=== PATIENT | male | born 1975 | race Caucasian/White ===

== ENCOUNTER 2018-04-30 19:12 | Emergency (ER) | payer SELFPAY ==
[2018-04-30 19:24] VITALS: BP 136/78; PULSE 87; TEMP 99.2; BMI 31.6
--- NOTE | 2018-04-30 19:24 | PDOC ---
Rapid Medical Evaluation Chief Complaint: Chest Pain Time Seen by Provider: 04/30/18 19:17 Medical Evaluation: Allergies Allergy/AdvReac Type Severity Reaction Status Date / Time No Known Allergies Allergy Verified 10/16/15 23:40 04/30/18 19:18 Pt. reports pleuritic chest pain for one week. States that he thinks it was initially from the coughing, but today he states that the pain feel like a pinching pain. Also reports shortness of breath, difficulty breathing, non- productive cough and fevers for the last two days. Pain is worse when he takes a deep breath or coughs. Has taken no medication for his pain Exam: AAOx3, breathing easily Orders: EKG, CXR Pt. to proceed to the ER for further evaluation
--- NOTE | 2018-04-30 20:00 | PDOC ---
History of Present Illness - General Chief Complaint: Chest Pain Stated Complaint: CHEST PAIN Time Seen by Provider: 04/30/18 19:17 - History of Present Illness Initial Comments: 42-year-old male without any pre-existing comorbidities presents for evaluation of cough and posttussive chest pain times one week. Subjective fever at home. He hasn't taken anything for his cough or his pain. 04/30/18 19:55 Past History - Past Medical History Allergies/Adverse Reactions: Allergies Allergy/AdvReac Type Severity Reaction Status Date / Time No Known Allergies Allergy Verified 10/16/15 23:40 Home Medications: Ambulatory Orders Budesonide [Rhinocort Allergy] 1 spray NS ONCE #1 spray.pump 04/30/18 Cetirizine HCl/Pseudoephedrine [Zyrtec-D Tablet] 1 each PO DAILY #30 tab.er.12h 04/30/18 Guaifenesin [Robitussin] 5 ml PO HS #30 ml 04/30/18 Asthma: Yes COPD: No Other medical history: hepatitis C - Surgical History Appendectomy: Yes - Immunization History Immunization Up to Date: Yes - Suicide/Smoking/Psychosocial Hx Smoking Status: No Smoking History: Never smoked Have you smoked in the past 12 months: No Number of Cigarettes Smoked Daily: 0 Information on smoking cessation initiated: No 'Breaking Loose' booklet given: 05/16/14 Hx Alcohol Use: No Drug/Substance Use Hx: No Substance Use Type: None Hx Substance Use Treatment: No Review of Systems - Review of Systems Constitutional: Yes: See HPI, Fever Respiratory: Yes: Cough, Shortness of Breath, SOB with Exertion. No: SOB at Rest, Productive cough Cardiac (ROS): Yes: Chest Pain All Other Systems: Reviewed and Negative *Physical Exam - Vital Signs Last Vital Signs Temp Pulse Resp BP Pulse Ox 99.2 F 87 18 136/78 100 04/30/18 19:18 04/30/18 19:18 04/30/18 19:18 04/30/18 19:18 04/30/18 19:18 - Physical Exam Comments: GENERAL: The patient is awake, alert, and fully oriented, in no acute distress. HEAD: Normal with no signs of trauma. EYES: Pupils equal, round and reactive to light, extraocular movements intact, sclera anicteric, conjunctiva clear. ENT: Ears normal, nares patent, oropharynx clear without exudates. Moist mucous membranes. NECK: Normal range of motion, supple without lymphadenopathy, JVD, or masses. LUNGS: Breath sounds equal, clear to auscultation bilaterally. No wheezes, and no crackles. HEART: Regular rate and rhythm, normal S1 and S2 without murmur, rub or gallop. he has tenderness about the third fourth and fifth costochondrajunction on the left ABDOMEN: Soft, nontender, normoactive bowel sounds. No guarding, no rebound. No masses. EXTREMITIES: Normal range of motion, no edema. No clubbing or cyanosis. No cords, erythema, or tenderness. NEUROLOGICAL: Cranial nerves II through XII grossly intact. Normal speech, normal gait. PSYCH: Normal mood, normal affect. SKIN: Warm, Dry, normal turgor, no rashes or lesions noted. 04/30/18 19:56 04/30/18 19:58 Medical Decision Making - Medical Decision Making This is a 42-year-old male with a benign exam subjective fever at home posttussive chest pain. He has no cardiac risk factors his chest pain is reproducible with palpation. I believe this may be a viral bronchitis or seasonal ALLERGY I will treat him with Loni and Robitussin as well as a nasal spray and have him follow-up with his primary care physician. 04/30/18 19:56 04/30/18 20:01 Of note his chest x-ray was normal *DC/Admit/Observation/Transfer Diagnosis at time of Disposition: Allergic rhinitis, Cough - Discharge Dispostion Disposition: HOME Condition at time of disposition: Stable Decision to Admit order: No - Referrals Referrals: Sujit Gonzalez [Non Staff, Medical] - - Patient Instructions Printed Discharge Instructions: DI for Chest Pain, Allergic Rhinitis, DI for Allergic Rhinitis Additional Instructions: Return to the emergency room should her symptoms worsen or go unresolved. He should follow-up with your primary care doctor within the next 1-2 days. Your chest x-ray was clear neuro exam was normal except for the reproducible chest pain. This tells me this pain is not cardiac in nature. I believe he had chest pain because you've had a cough for a week I've given you cough syrup an antihistamine for ALLERGIES as well as a nasal spray which will help your congestion. Again return to the emergency room should her symptoms worsen or go unresolved prior to follow-up with her primary care doctor take the medication as prescribed. - Post Discharge Activity
--- NOTE | 2018-05-01 11:53 | EKG ---
Test Reason : Blood Pressure : / mmHG Vent. Rate : 093 BPM Atrial Rate : 093 BPM P-R Int : 178 ms QRS Dur : 102 ms QT Int : 340 ms P-R-T Axes : 035 -30 051 degrees QTc Int : 422 ms NORMAL SINUS RHYTHM LEFT AXIS DEVIATION ABNORMAL ECG WHEN COMPARED WITH ECG OF 12-AUG-2013 09:13, QRS DURATION HAS INCREASED Confirmed by ROSSY ARREGUIN MD ([id number]) on 05/01/2018 11:53:13 AM Referred By: Confirmed By:ROSSY ARREGUIN MD
== END 2018-04-30 20:05 | disposition home or self-care (01) ==
LOC: JERFT 19:12
DX: J30.2 Other seasonal allergic rhinitis (principal)
CPT/HCPCS: 71046-TC-FY; 93005; 93010; 99281-25

== ENCOUNTER 2018-08-02 22:22 | Emergency (ER) | payer SELFPAY ==
[2018-08-02 22:54] VITALS: BP 118/98; PULSE 61; TEMP 98.3; BMI 30.7
[2018-08-02] MEDS ORDERED: KETOROLAC TROMETHAMINE 15 MG/ML VIAL IM ONE (23:14)
--- NOTE | 2018-08-02 23:19 | PDOC ---
History of Present Illness - General Chief Complaint: Pain, Acute Stated Complaint: RT SHOULDER PAIN Time Seen by Provider: 08/02/18 22:50 History Source: Patient Exam Limitations: No Limitations - History of Present Illness Initial Comments: 08/02/18 23:14 Mr. Herron is a 43 yo M with a hx of MA 5 yrs ago presents to the emergency department with right shoulder pain. This has been ongoing for the past two weeks. The pain is reproducible/worsens when he overuses his arm and when it is outstretched backwards. He states the pain is worse at night when he lays on it. Currently it feels like a sharp pain located in the shoulder region and deltoid distribution. He denies an inciting event that occurred 2 weeks ago. Denies the following: exertion chest pain and SOB, fever, chills, nausea, vomiting, SOB at rest, chest pain at rest, abdominal pain, recent visual changes , cyanosis of the arm, loss of sensation and motor function of the right arm, dysuria, hematuria, and diarrhea. PMD: Jamir Thomas Social hx: Denies tobacco, alcohol, and drug use. Meds: None Allergies: NKDA Past History - Past Medical History Allergies/Adverse Reactions: Allergies Allergy/AdvReac Type Severity Reaction Status Date / Time No Known Allergies Allergy Verified 08/02/18 22:53 Home Medications: Ambulatory Orders Budesonide [Rhinocort Allergy] 1 spray NS ONCE #1 spray.pump 04/30/18 Cetirizine HCl/Pseudoephedrine [Zyrtec-D Tablet] 1 each PO DAILY #30 tab.er.12h 04/30/18 Guaifenesin [Robitussin] 5 ml PO HS #30 ml 04/30/18 Asthma: Yes COPD: No - Surgical History Appendectomy: Yes - Immunization History Immunization Up to Date: Yes - Suicide/Smoking/Psychosocial Hx Smoking Status: No Smoking History: Never smoked Have you smoked in the past 12 months: No Number of Cigarettes Smoked Daily: 0 Information on smoking cessation initiated: No 'Breaking Loose' booklet given: 05/16/14 Hx Alcohol Use: No Drug/Substance Use Hx: No Substance Use Type: None Hx Substance Use Treatment: No Review of Systems - Review of Systems Able to Perform ROS?: Yes Is the patient limited Salvadorean proficient: No Constitutional: No: Chills, Diaphoresis, Fever HEENTM: No: Eye Pain, Recent change in vision, Ear Pain, Nose Pain, Throat Pain , Mouth Pain Respiratory: No: Cough, SOB with Exertion, SOB at Rest, Hemoptysis Cardiac (ROS): No: Chest Pain, Irregular Heart Rate, Lightheadedness, Palpitations, Syncope, Chest Tightness ABD/GI: No: Constipated, Diarrhea, Nausea, Rectal Bleeding, Vomiting, Abdominal cramping, Tarry Stools : No: Burning, Dysuria, Flank Pain, Hematuria Musculoskeletal: Yes: Joint Pain (right shoulder). No: Back Pain, Joint Swelling, Muscle Pain, Neck Pain, Joint Stiffness Integumentary: No: Rash Neurological: No: Headache, Numbness, Pre-Existing Deficit, Seizure, Tingling, Weakness, Unsteady Gait, Ataxia, Dizziness Psychiatric: No: Stressors Endocrine: No: Unexplained Weight Loss Hematologic/Lymphatic: No: Anemia *Physical Exam - Vital Signs Last Vital Signs Temp Pulse Resp BP Pulse Ox 98.3 F 61 18 118/98 99 08/02/18 22:53 08/02/18 22:53 08/02/18 22:53 08/02/18 22:53 08/02/18 22:53 - Physical Exam General Appearance: Yes: Nourished, Appropriately Dressed HEENT: positive: EOMI, ALICE, Normal Voice, Symmetrical Neck: positive: Trachea midline. negative: Lymphadenopathy (R), Lymphadenopathy (L) Respiratory/Chest: positive: Lungs Clear, Normal Breath Sounds. negative: Chest Tender, Respiratory Distress, Accessory Muscle Use, Crackles, Rales, Rhonchi, Wheezing, Hyperresonant Cardiovascular: positive: Regular Rhythm, Regular Rate, S1, S2. negative: Murmur Vascular Pulses: Dorsalis-Pedis (R): 3+, Doralis-Pedis (L): 3+ Gastrointestinal/Abdominal: positive: Normal Bowel Sounds. negative: Tender Lymphatic: negative: Adenopathy Musculoskeletal: positive: Normal Inspection. negative: CVA Tenderness Extremity: positive: Normal Capillary Refill, Normal Inspection (eczema throughout the upper extremity), Normal Range of Motion (elicited clicking on the right shoulder with active ROM), Tender (deltoid region right. right shoulder region in the superior/posterior portion. Positive empty can, neers, and giron test), Other (no sublaxation noted on exam of the right shoulder). 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 negative: EOM Palsy, Facial Droop , Numbness, Sensory Deficit, Confused, Disoriented ED Treatment Course - RADIOLOGY Radiology Studies Ordered: Category Date Time Status SHOULDER-RIGHT [RAD] Stat Radiology 08/02/18 23:02 Ordered Medical Decision Making - Medical Decision Making 08/02/18 23:28 Mr. Herron is a 43 yo M with a hx of MA 5 yrs ago presents to the emergency department with right shoulder pain. DDX: anterior/posterior dislocation, humeral head/neck fracture, contusion, labrum tear, rotator cuff tear/impingement, thoracic outlet syndrome Initial vitals: Initial Vital Signs Temp Pulse Resp BP Pulse Ox 98.3 F 61 18 118/98 99 08/02/18 22:53 08/02/18 22:53 08/02/18 22:53 08/02/18 22:53 08/02/18 22:53 Work up: Shoulder xray to rule out fracture and/or dislocation. Shoulder xray did not show evidence of dislocation or fracture. He was given 15 mg of toradol for analgesia. He felt better after this was given and states he is ok to go home. Will have them follow up with orthopedics for eventual MRI to ascertain pathology. Pt was agreeable to this plan and understood it in its entirety. 08/03/18 00:07 *DC/Admit/Observation/Transfer Diagnosis at time of Disposition: Right shoulder pain Qualifiers: Chronicity: unspecified Qualified Code(s): M25.511 - Pain in right shoulder - Discharge Dispostion Disposition: HOME Decision to Admit order: No - Referrals Referrals: Jamir Thomas [Non Staff, Medical] - Kristian Ruiz MD [Staff Physician] - - Patient Instructions Additional Instructions: You have been seen in the emergency department for right shoulder pain. You were examined in the department and received a shoulder xray that showed no fracture or dislocations. You are being referred to your primary medical doctor who you should follow up with in 24-36 hours for continued care and management. In the meanwhile, please keep your shoulder activity to a minimum and use ibuprofen as directed on the label for pain control. In addition, please follow up with the orthopedics physician we referred you to within the next week for further management. Please return to the emergency department if your symptoms worsen or if you have new concerning symptoms such as loss of sensation in your right arm, it becomes pale, cold, or lose the ability to move your arm. Thank you. - Post Discharge Activity
[2018-08-02] MEDS ORDERED: KETOROLAC TROMETHAMINE 15 MG/ML VIAL ONE (23:39)
--- NOTE | 2018-08-03 00:25 | PDOC ---
Attending Attestation - Resident Resident Name: Reji Lozoya - ED Attending Attestation I have performed the following: I have examined & evaluated the patient, The case was reviewed & discussed with the resident, I agree w/resident's findings & plan, Exceptions are as noted - HPI HPI: 08/03/18 00:25 Agree with residents HPI - Physicial Exam PE: 08/03/18 00:25 Agree with residents PE - Medical Decision Making 08/03/18 00:24 Reproducible musculoskeletal right shoulder pain. Worse with extension back and when lifting overhead most likely differential diagnosis includes rotator cuff injury versus labrum injury. Status post Toradol patient feels better x-ray demonstrates no acute fracture dislocation. Pt. will follow up with orthopedics on Saturday. Findings, the need for follow-up and strict return instructions discussed with patient.
== END 2018-08-03 00:35 | disposition home or self-care (01) ==
LOC: JER 22:22
PROC: 3E0233Z Introduction of Anti-inflammatory into Muscle, Percutaneous Approach (ICD-10-PCS; principal; 2018-08-02)
DX: M25.511 Pain in right shoulder (principal); I25.2 Old myocardial infarction; J45.909 Unspecified asthma, uncomplicated
CPT/HCPCS: 73030-TC-RT-FY; 99282-25

== ENCOUNTER 2018-12-09 23:18 | Emergency (ER) | payer SELFPAY ==
[2018-12-09 23:25] VITALS: BMI 30.7
--- NOTE | 2018-12-09 23:38 | PDOC ---
History of Present Illness - General Chief Complaint: Cold Symptoms Stated Complaint: COLD SYMPTOMS Time Seen by Provider: 12/09/18 23:38 History Source: Patient - History of Present Illness Initial Comments: 12/10/18 00:26 43 year old male with cough, nasal congestion and throat pain x 1 day. vomited 1 x today. denies fever/ chills. Past History - Past Medical History Allergies/Adverse Reactions: Allergies Allergy/AdvReac Type Severity Reaction Status Date / Time No Known Allergies Allergy Verified 08/02/18 22:53 Home Medications: Ambulatory Orders Budesonide [Rhinocort Allergy] 1 spray NS ONCE #1 spray.pump 04/30/18 Cetirizine HCl/Pseudoephedrine [Zyrtec-D Tablet] 1 each PO DAILY #30 tab.er.12h 04/30/18 Guaifenesin [Robitussin] 5 ml PO HS #30 ml 04/30/18 Albuterol Sulfate Inhaler - [Ventolin HFA Inhaler -] 1 - 2 inh PO Q4H PRN #1 inhaler 12/10/18 Fluticasone Prop 0.05% Nasal [Flonase -] 1 - 2 spray NS BID #1 spray.pump Asthma: Yes COPD: No - Surgical History Appendectomy: Yes - Immunization History Immunization Up to Date: Yes - Suicide/Smoking/Psychosocial Hx Smoking Status: No Smoking History: Never smoked Have you smoked in the past 12 months: No Number of Cigarettes Smoked Daily: 0 Information on smoking cessation initiated: No 'Breaking Loose' booklet given: 05/16/14 Hx Alcohol Use: No Drug/Substance Use Hx: No Substance Use Type: None Hx Substance Use Treatment: No Review of Systems - Review of Systems Able to Perform ROS?: No Is the patient limited Italian proficient: No Constitutional: No: Symptoms Reported, See HPI, Chills, Diaphoresis, Fever, Loss of Appetite, Malaise, Night Sweats, Weakness, Weight Stable, Unintentional Wgt. Loss, Unexplained wgt Loss, Other HEENTM: Yes: Nose Congestion, Throat Pain Respiratory: Yes: Cough, Shortness of Breath *Physical Exam - Vital Signs Last Vital Signs Temp Pulse Resp BP Pulse Ox 97.7 F 68 18 133/71 97 12/09/18 23:22 12/09/18 23:22 12/09/18 23:22 12/09/18 23:22 12/09/18 23:22 - Physical Exam General Appearance: Yes: Appropriately Dressed HEENT: positive: Tonsillar Erythema, Nasal Congestion Neck: negative: Lymphadenopathy (R), Lymphadenopathy (L) Respiratory/Chest: positive: Lungs Clear, Normal Breath Sounds. negative: Chest Tender Cardiovascular: positive: Regular Rhythm, Regular Rate Gastrointestinal/Abdominal: positive: Normal Bowel Sounds, Soft. negative: Tender Extremity: positive: Normal Capillary Refill, Normal Inspection, Normal Range of Motion Integumentary: positive: Normal Color, Dry, Warm Neurologic: positive: Fully Oriented, Alert, Normal Mood/Affect Moderate Sedation - Procedure Monitoring Vital Signs: Procedure Monitoring Vital Signs Temperature 97.7 F 12/09/18 23:22 Pulse Rate 68 12/09/18 23:22 Respiratory Rate 18 12/09/18 23:22 Blood Pressure 133/71 12/09/18 23:22 O2 Sat by Pulse Oximetry (%) 97 12/09/18 23:22 ED Treatment Course - RADIOLOGY Chest X-Ray Result: No Infiltrates *DC/Admit/Observation/Transfer Diagnosis at time of Disposition: URI (upper respiratory infection) Qualifiers: URI type: unspecified URI Qualified Code(s): J06.9 - Acute upper respiratory infection, unspecified - Discharge Dispostion Disposition: HOME - Prescriptions Prescriptions: Albuterol Sulfate Inhaler - [Ventolin HFA Inhaler -] 1 - 2 inh PO Q4H PRN #1 inhaler PRN Reason: Cough Fluticasone Prop 0.05% Nasal [Flonase -] 1 - 2 spray NS BID #1 spray.pump - Referrals Referrals: Jamir Thomas [Primary Care Provider] - - Patient Instructions Printed Discharge Instructions: DI for Common Cold Additional Instructions: drink plenty of fluids use flonase as prescribed take ibuprofen every 6 hours as needed for pain take tylenol every 4-6 hours as needed for pain Additional Instructions: * Please call your personal physician to report your Emergency Department visit and to report your progress, if any. * If there is no improvement in symptoms in 2 days call your physician. * Return to the Emergency Department for any worsening symptoms. - Post Discharge Activity Forms/Work/School Notes: Back to Work
--- NOTE | 2018-12-09 23:56 | PDOC ---
*Physical Exam - Vital Signs Last Vital Signs Temp Pulse Resp BP Pulse Ox 97.7 F 68 18 133/71 97 12/09/18 23:22 12/09/18 23:22 12/09/18 23:22 12/09/18 23:22 12/09/18 23:22 Medical Decision Making - Medical Decision Making 12/09/18 23:56 Patient seen by the advanced practice provider under my direct supervision. Ancillary testing reviewed as necessary. I agree with plan as outlined by the advanced practice provider. *DC/Admit/Observation/Transfer Diagnosis at time of Disposition: URI (upper respiratory infection) Qualifiers: URI type: unspecified URI Qualified Code(s): J06.9 - Acute upper respiratory infection, unspecified - Referrals Referrals: Jamir Thomas [Primary Care Provider] - - Patient Instructions - Post Discharge Activity
[2018-12-10] MEDS ORDERED: IBUPROFEN 600 MG TABLET (FP) PO ONE ×2 (00:27→00:39)
[2018-12-10] MEDS ORDERED: ALBUTEROL SO4 2.5/IPRATROPIUM 0.5 INH SOL 3 ML VIAL.NEB. NEB ONE ×2 (01:40→01:43)
[2018-12-10 02:44] VITALS: BP 141/68; PULSE 88; TEMP 98.5
== END 2018-12-10 02:44 | disposition home or self-care (01) ==
LOC: JER 23:18
PROC: 3E0F7GC Introduction of Other Therapeutic Substance into Respiratory Tract, Via Natural or Artificial Opening (ICD-10-PCS; principal; 2018-12-09)
DX: J06.9 Acute upper respiratory infection, unspecified (principal)
CPT/HCPCS: 71046-TC-FY; 87070; 87804; 87880; 99281-25

== ENCOUNTER 2019-10-06 21:53 | Emergency (ER) | payer SELFPAY ==
[2019-10-06 22:01] VITALS: BP 144/80; PULSE 78; TEMP 98; BMI 31.6
[2019-10-06] MEDS ORDERED: predniSONE 20 MG TABLET (UD) PO ONE (22:40)
--- NOTE | 2019-10-06 22:40 | PDOC ---
History of Present Illness - General Chief Complaint: Cold Symptoms Stated Complaint: SOB/CHEST PAIN Time Seen by Provider: 10/06/19 22:27 History Source: Patient - History of Present Illness Initial Comments: 44-year-old male complaining of chest congestion cough, nasal congestion for the last 2 weeks. Reports cough is worse at night and when outside in the cold. Denies fever/chills denies shortness of breath., Chest pain. Patient Patient reports that he has a past medical history of asthma as an infant/ child. No recent reactive airway. Past History - Past Medical History Allergies/Adverse Reactions: Allergies Allergy/AdvReac Type Severity Reaction Status Date / Time No Known Allergies Allergy Verified 08/02/18 22:53 Home Medications: Ambulatory Orders Budesonide [Rhinocort Allergy] 1 spray NS ONCE #1 spray.pump 04/30/18 Cetirizine HCl/Pseudoephedrine [Zyrtec-D Tablet] 1 each PO DAILY #30 tab.er.12h 04/30/18 Guaifenesin [Robitussin] 5 ml PO HS #30 ml 04/30/18 Albuterol Sulfate Inhaler - [Ventolin HFA Inhaler -] 1 - 2 inh PO Q4H PRN #1 inhaler 12/10/18 Fluticasone Prop 0.05% Nasal [Flonase -] 1 - 2 spray NS BID #1 spray.pump Albuterol Sulfate Inhaler - [Ventolin HFA Inhaler -] 1 - 2 inh PO Q4H PRN #1 inhaler 10/06/19 Benzonatate [Tessalon Pearls -] 100 mg PO TID PRN #14 capsule 10/06/19 predniSONE [Deltasone -] 40 mg PO DAILY #8 tablet 10/06/19 Asthma: Yes COPD: No - Surgical History Appendectomy: Yes - Immunization History Immunization Up to Date: Yes - Psycho Social/Smoking Cessation Hx Smoking Status: No Smoking History: Never smoked Have you smoked in the past 12 months: No Number of Cigarettes Smoked Daily: 0 'Breaking Loose' booklet given: 05/16/14 Hx Alcohol Use: No Drug/Substance Use Hx: No Substance Use Type: None Hx Substance Use Treatment: No Review of Systems - Review of Systems Able to Perform ROS?: Yes Is the patient limited Angolan proficient: No Constitutional: No: Symptoms Reported, See HPI, Chills, Diaphoresis, Fever, Loss of Appetite, Malaise, Night Sweats, Weakness, Weight Stable, Unintentional Wgt. Loss, Unexplained wgt Loss, Other Respiratory: Yes: Cough Cardiac (ROS): Yes: Chest Tightness. No: Symptoms Reported, See HPI, Chest Pain , Edema, Irregular Heart Rate, Lightheadedness, Palpitations, Syncope, Other ABD/GI: No: Symptoms Reported, See HPI, Abdominal Distended, Abd. Pain w/ defecation, Blood Streaked Bowels, Constipated, Diarrhea, Difficulty Swallowing , Nausea, Poor Appetite, Poor Fluid Intake, Rectal Bleeding, Vomiting, Indigestion, Abdominal cramping, Tarry Stools, Other *Physical Exam - Vital Signs Last Vital Signs Temp Pulse Resp BP Pulse Ox 98 F 78 20 144/80 98 10/06/19 21:55 10/06/19 21:55 10/06/19 21:55 10/06/19 21:55 10/06/19 21:55 - Physical Exam General Appearance: Yes: Appropriately Dressed Respiratory/Chest: positive: Lungs Clear, Normal Breath Sounds. negative: Chest Tender Cardiovascular: positive: Regular Rhythm, Regular Rate Gastrointestinal/Abdominal: positive: Normal Bowel Sounds, Soft. negative: Tender Musculoskeletal: positive: Normal Inspection Integumentary: positive: Normal Color, Dry, Warm Neurologic: positive: Fully Oriented, Alert, Normal Mood/Affect ED Progress Note - Progress Note Progress Note: A: bronchitis P: duo neb xray prednisone Discharge - Discharge Information Problems reviewed: Yes Clinical Impression/Diagnosis: Bronchitis Disposition: HOME - Additional Discharge Information Prescriptions: Albuterol Sulfate Inhaler - [Ventolin HFA Inhaler -] 1 - 2 inh PO Q4H PRN #1 inhaler PRN Reason: Cough Benzonatate [Tessalon Pearls -] 100 mg PO TID PRN #14 capsule PRN Reason: Cough predniSONE [Deltasone -] 40 mg PO DAILY #8 tablet - Follow up/Referral Referrals: Jamir Thomas [Primary Care Provider] - 24 hours - Patient Discharge Instructions Patient Printed Discharge Instructions: DI for Acute Bronchitis - Post Discharge Activity Work/Back to School Note: Back to Work
[2019-10-06] MEDS: ALBUTEROL SO4 2.5/IPRATROPIUM 0.5 INH SOL 3 ML VIAL.NEB. NEB SCH ×2 (23:20→23:29)
[2019-10-06] MEDS ORDERED: ALBUTEROL SO4 2.5/IPRATROPIUM 0.5 INH SOL 3 ML VIAL.NEB. NEB ONE (23:23)
[2019-10-06] MEDS ORDERED: predniSONE 20 MG TABLET (UD) ONE (23:23)
--- NOTE | 2019-10-06 23:42 | PDOC ---
*Physical Exam - Vital Signs Last Vital Signs Temp Pulse Resp BP Pulse Ox 98 F 78 20 144/80 98 10/06/19 21:55 10/06/19 21:55 10/06/19 21:55 10/06/19 21:55 10/06/19 21:55 ED Treatment Course - Medications Given in the ED: ED Medications Discontinued Medications Generic Name Dose Route Start Last Admin Trade Name Freq PRN Reason Stop Dose Admin Albuterol/Ipratropium 1 amp 10/06/19 22:45 10/06/19 23:29 Duoneb - NEB 10/06/19 23:01 1 amp Q15M LUCIAN Administration Prednisone 40 mg 10/06/19 22:40 10/06/19 23:20 Deltasone - PO 10/06/19 22:41 40 mg ONCE ONE Administration Medical Decision Making - Medical Decision Making 10/06/19 23:41 Patient seen by the advanced practice provider under my direct supervision. Ancillary testing reviewed as necessary. I agree with plan as outlined by the advanced practice provider. Discharge - Discharge Information Problems reviewed: Yes Clinical Impression/Diagnosis: Bronchitis Disposition: HOME - Additional Discharge Information Prescriptions: Albuterol Sulfate Inhaler - [Ventolin HFA Inhaler -] 1 - 2 inh PO Q4H PRN #1 inhaler PRN Reason: Cough Benzonatate [Tessalon Pearls -] 100 mg PO TID PRN #14 capsule PRN Reason: Cough predniSONE [Deltasone -] 40 mg PO DAILY #8 tablet - Follow up/Referral Referrals: Jamir Thomas [Primary Care Provider] - 24 hours - Patient Discharge Instructions Patient Printed Discharge Instructions: DI for Acute Bronchitis - Post Discharge Activity Work/Back to School Note: Back to Work
== END 2019-10-07 00:03 | disposition home or self-care (01) ==
LOC: JER 21:53 → JERFT 21:53 → JER 10-07 00:03
PROC: 3E0F7GC Introduction of Other Therapeutic Substance into Respiratory Tract, Via Natural or Artificial Opening (ICD-10-PCS; principal; 2019-10-06)
DX: J40 Bronchitis, not specified as acute or chronic (principal)
CPT/HCPCS: 71046-TC-FY; 99282-25

== ENCOUNTER 2019-11-05 20:14 | Emergency (ER) | payer SELFPAY ==
[2019-11-05 20:22] VITALS: BP 156/79; PULSE 76; TEMP 98.2; BMI 26.6
--- NOTE | 2019-11-05 20:23 | PDOC ---
Rapid Medical Evaluation Chief Complaint: Wound Time Seen by Provider: 11/05/19 20:20 Medical Evaluation: Allergies Allergy/AdvReac Type Severity Reaction Status Date / Time No Known Allergies Allergy Verified 11/05/19 20:19 11/05/19 20:20 I have performed a brief in-person evaluation of this patient. The patient presents with a chief complaint of: bump to back of head noticed today, denies pain Pertinent physical exam findings: noted nontender, non erythematous semi-firm slightly mobile mass to lower posterior neck, noticed also a bump to upper rt gumline x 1 day I have ordered the following: none The patient will proceed to the ED for further evaluation. Discharge Disposition - Diagnosis Lump on neck - Referrals Referrals: Jamir Thomas [Primary Care Provider] - - Patient Instructions - Post Discharge Activity
--- NOTE | 2019-11-05 21:49 | PDOC ---
History of Present Illness - General Chief Complaint: Wound Stated Complaint: PAIN Time Seen by Provider: 11/05/19 20:20 History Source: Patient Exam Limitations: No Limitations Past History - Past Medical History Allergies/Adverse Reactions: Allergies Allergy/AdvReac Type Severity Reaction Status Date / Time No Known Allergies Allergy Verified 11/05/19 20:19 Home Medications: Ambulatory Orders Budesonide [Rhinocort Allergy] 1 spray NS ONCE #1 spray.pump 04/30/18 Cetirizine HCl/Pseudoephedrine [Zyrtec-D Tablet] 1 each PO DAILY #30 tab.er.12h 04/30/18 Guaifenesin [Robitussin] 5 ml PO HS #30 ml 04/30/18 Albuterol Sulfate Inhaler - [Ventolin HFA Inhaler -] 1 - 2 inh PO Q4H PRN #1 inhaler 12/10/18 Fluticasone Prop 0.05% Nasal [Flonase -] 1 - 2 spray NS BID #1 spray.pump Albuterol Sulfate Inhaler - [Ventolin HFA Inhaler -] 1 - 2 inh PO Q4H PRN #1 inhaler 10/06/19 Benzonatate [Tessalon Pearls -] 100 mg PO TID PRN #14 capsule 10/06/19 predniSONE [Deltasone -] 40 mg PO DAILY #8 tablet 10/06/19 Asthma: Yes COPD: No - Surgical History Appendectomy: Yes - Immunization History Immunization Up to Date: Yes - Psycho Social/Smoking Cessation Hx Smoking Status: No Smoking History: Never smoked Have you smoked in the past 12 months: No Number of Cigarettes Smoked Daily: 0 'Breaking Loose' booklet given: 05/16/14 Hx Alcohol Use: No Drug/Substance Use Hx: No Substance Use Type: None Hx Substance Use Treatment: No *Physical Exam - Vital Signs Last Vital Signs Temp Pulse Resp BP Pulse Ox 98.2 F 76 16 156/79 100 11/05/19 20:19 11/05/19 20:19 11/05/19 20:19 11/05/19 20:19 11/05/19 20:19 - Physical Exam General Appearance: No: Apparent Distress HEENT: positive: ALICE, Other (around 1x1 cm indurated nodule along L posterior neck, nontender to touch, no erythema, no skin color changes; +L gum swelling, no dental abscess, prior teeth filling noted) Neck: positive: Supple. negative: Rigid, Decreased range of motion, Tender midline Respiratory/Chest: positive: Lungs Clear, Normal Breath Sounds. negative: Respiratory Distress Cardiovascular: positive: Regular Rhythm, Regular Rate, S1, S2. negative: Murmur Integumentary: positive: Normal Color Neurologic: positive: Alert Medical Decision Making - Medical Decision Making 44 y/o M hx of asthma presents with concern of pain to back of neck which he noted today; states bump is not painful. Also mentions having L gum swelling from yesterday. Denies trauma, fever, sob, cp, toothache, abd pain, vomiting. Patient brushes his teeth but does not floss. PE unremarkable Possible ?nodule to back of neck Does not appear as abscess Site is nontender to touch will refer to gen surgery for eval Gum swelling - gingivitis Proper dental care discussed advised to see dentist 11/05/19 21:46 Discharge - Discharge Information Problems reviewed: Yes Clinical Impression/Diagnosis: Lump on neck, Gingivitis Condition: Stable Disposition: HOME - Admission No - Additional Discharge Information Prescription Drug Monitoring Program (I-STOP) results: I-STOP not reviewed - Follow up/Referral Referrals: Jamir Thomas [Primary Care Provider] - Chan Cameron MD [Staff Physician] - 2 Days - Patient Discharge Instructions Patient Printed Discharge Instructions: DI for Gingivitis Additional Instructions: Thank you for choosing [facility]. It was a pleasure taking care of you. You were referred to surgeon for bump to back of neck Please follow-up with a dentist as well for gum swelling Be sure to brush twice a day, floss daily and use mouthwash Return to the Emergency Department if your symptoms worsen or persist, you have fever, facial swelling, skin color changes or other concerning symptoms. - Post Discharge Activity
== END 2019-11-05 22:06 | disposition home or self-care (01) ==
LOC: JERFT 20:14
DX: R22.1 Localized swelling, mass and lump, neck (principal); K05.10 Chronic gingivitis, plaque induced
CPT/HCPCS: 99281-25

== ENCOUNTER 2020-12-08 20:23 | Emergency (ER) | payer SELFPAY ==
[2020-12-08 20:29] VITALS: BP 155/70; PULSE 69; BMI 34.9
[2020-12-08] MEDS ORDERED: KETOROLAC TROMETHAMINE 60 MG/2 ML VIAL IM ONE (21:14)
[2020-12-08] MEDS ORDERED: LIDOCAINE 5% TOPICAL PATCH TP ONE (21:14)
[2020-12-08] MEDS ORDERED: METHOCARBAMOL 500 MG TABLET PO ONE (21:17)
[2020-12-08] MEDS ORDERED: LIDOCAINE 5% TOPICAL PATCH ONE (21:23)
[2020-12-08] MEDS ORDERED: KETOROLAC TROMETHAMINE 60 MG/2 ML VIAL ONE (21:23)
[2020-12-08] MEDS ORDERED: METHOCARBAMOL 500 MG TABLET ONE (21:23)
[2020-12-09] MEDS ORDERED: LIDOCAINE PATCH REMOVAL MC SCH (09:30)
== END 2020-12-08 22:06 | disposition home or self-care (01) ==
LOC: JER 20:23
PROC: 3E0233Z Introduction of Anti-inflammatory into Muscle, Percutaneous Approach (ICD-10-PCS; principal; 2020-12-08)
DX: M54.16 Radiculopathy, lumbar region (principal); M54.31 Sciatica, right side
CPT/HCPCS: 93005; 93010; 99284-25

== ENCOUNTER 2021-09-09 22:15 | Emergency (ER) | payer OTHER ==
[~2021-09-09 22:15] MED LIST: LIDOCAINE PATCH REMOVAL MC SCH
[2021-09-09 22:51] VITALS: BP 136/80; PULSE 74; TEMP 98; BMI 32.8
[2021-09-09] MEDS ORDERED: KETOROLAC TROMETHAMINE 30 MG/1 ML VIAL IM ONE (23:41)
[2021-09-09] MEDS ORDERED: ACETAMINOPHEN 500 MG TABLET (FP) PO ONE (23:41)
[2021-09-09] MEDS ORDERED: LIDOCAINE 5% TOPICAL PATCH TP ONE (23:42)
[2021-09-09] MEDS ORDERED: KETOROLAC TROMETHAMINE 30 MG/1 ML VIAL ONE (23:50)
[2021-09-09] MEDS ORDERED: ACETAMINOPHEN 325 MG TABLET (FP) ONE (23:50)
[2021-09-09] MEDS ORDERED: LIDOCAINE 5% TOPICAL PATCH ONE (23:50)
[2021-09-10] MEDS ORDERED: METHOCARBAMOL 500 MG TABLET PO ONE (00:53)
[2021-09-10] MEDS ORDERED: METHOCARBAMOL 500 MG TABLET ONE (01:08)
== END 2021-09-10 01:17 | disposition home or self-care (01) ==
LOC: JER 22:15
PROC: 3E023GC Introduction of Other Therapeutic Substance into Muscle, Percutaneous Approach (ICD-10-PCS; principal; 2021-09-09)
DX: M54.50 Low back pain, unspecified (principal)
CPT/HCPCS: 72131-TC; 96372; 99284-25

== ENCOUNTER 2021-11-13 21:38 | Emergency (ER) | payer OTHER ==
[2021-11-13 21:58] VITALS: BP 150/78; PULSE 78; TEMP 98; BMI 36.0
[2021-11-15 17:09] LABS: SARS-CoV-2 NAA Detected (Not Detected)
== END 2021-11-14 01:09 | disposition home or self-care (01) ==
LOC: JER 21:38
DX: U07.1 COVID-19 (principal); R05.1 Acute cough
CPT/HCPCS: 99283-25; C9803; U0003; U0005

== ENCOUNTER 2021-12-01 11:23 | Emergency (ER) | payer OTHER ==
[2021-12-01 11:28] VITALS: TEMP 98.1; BMI 32.8
[2021-12-01 13:20] LABS: BASO % 1.3 % (0-2.0); EOS % 2.5 % (0-4.5); HEMOGLOBIN 13.5 GM/dL (11.7-16.9); LYMPH % 13.8 % (8-40); MCH 29.4 pg (25.7-33.7); MCHC 34.7 g/dl (32.0-35.9); MEAN CELL VOLUME 84.7 fl (80-96); MEAN PLT VOLUME 7.9 fl (7.5-11.1); MONO % 8.1 % (3.8-10.2); NEUT % 74.3 % (42.8-82.8); PLATELET COUNT 402 10^3/uL (134-434); RBC 4.61 M/mm3 (4.00-5.60); RDW 13.5 % (11.9-15.9); WHITE BLOOD COUNT 10.1 K/mm3 (4.0-10.0)
[2021-12-01 13:31] LABS: CHLORIDE 106 mmol/L (98-107); SODIUM 141 mmol/L (136-145)
[2021-12-01 13:34] LABS: ALBUMIN 3.9 g/dl (3.4-5.0); ANION GAP 8 MMOL/L (8-16); CO2 27 mmol/L (21-32)
[2021-12-01 13:35] LABS: GLUCOSE,RANDOM 81 mg/dL (74-106)
[2021-12-01 13:37] LABS: CREATININE 1.1 mg/dL (0.55-1.3); SGOT/AST 20 U/L (15-37); SGPT/ALT 36 U/L (13-61)
[2021-12-01 13:39] LABS: BILIRUBIN,TOTAL 0.8 mg/dL (0.2-1); TOT PROT 7.4 g/dl (6.4-8.2)
[2021-12-01 13:40] LABS: ALK PHOS 73 U/L (45-117)
[2021-12-01 14:05] VITALS: BP 150/62; PULSE 76
== END 2021-12-01 14:04 | disposition home or self-care (01) ==
LOC: JER 11:23
DX: I48.92 Unspecified atrial flutter (principal); R07.9 Chest pain, unspecified
CPT/HCPCS: 36415; 71046-TC-FY; 80053; 82550; 82553; 84484; 85025; 93005; 93010; 99284-25

== ENCOUNTER 2024-04-04 20:39 | Emergency (ER) | payer OTHER ==
[2024-04-04 20:47] VITALS: BP 156/67; PULSE 67; RESP 18; TEMP 98.9; BMI 33.6
[2024-04-04] MEDS ORDERED: KETOROLAC TROMETHAMINE 30 MG/1 ML VIAL ONE (21:05)
[2024-04-04] MEDS: COLCHICINE 0.6 MG CAP PO ONE (21:21)
[2024-04-04] MEDS: KETOROLAC TROMETHAMINE 30 MG/1 ML VIAL IVPUSH ONE (21:21)
[2024-04-04 21:33] LABS: BASO % 0.8 % (0-2.0); EOS % 3.2 % (0-4.5); HEMATOCRIT 42.8 % (35.4-49); LYMPH % 18.5 % (8-40); MCH 29.4 pg (25.7-33.7); MCHC 34.9 g/dl (32.0-35.9); MEAN CELL VOLUME 84.2 fl (80-96); MEAN PLT VOLUME 8.1 fl (7.5-11.1); MONO % 9.2 % (3.8-10.2); NEUT % 68.3 % (42.8-82.8); PLATELET COUNT 435 10^3/uL (134-434); RBC 5.09 M/mm3 (4.00-5.60); RDW 14.2 % (11.9-15.9); WHITE BLOOD COUNT 10.6 K/mm3 (4.0-10.0)
[2024-04-04 21:53] LABS: ALBUMIN 4.2 g/dl (3.4-5.0); BLOOD UREA NITROGEN 15.8 mg/dL (7-18); CALCIUM 9.2 mg/dL (8.5-10.1)
[2024-04-04 21:55] LABS: CREATININE 1.3 mg/dL (0.55-1.3); URIC ACID 7.8 mg/dL (2.6-7.2)
[2024-04-04 21:57] LABS: BILIRUBIN,TOTAL 0.5 mg/dL (0.2-1); TOT PROT 8.2 g/dl (6.4-8.2)
== END 2024-04-04 22:26 | disposition home or self-care (01) ==
LOC: JER 20:39 → JERFT 20:39 → JER 22:26
PROC: 3E0333Z Introduction of Anti-inflammatory into Peripheral Vein, Percutaneous Approach (ICD-10-PCS; principal; 2024-04-04)
DX: M10.9 Gout, unspecified (principal)
CPT/HCPCS: 36415; 73630-TC-RT-FY; 80053; 84550; 85025; 99284-25

== ENCOUNTER 2024-11-05 19:29 | Emergency (ER) | payer OTHER ==
[2024-11-05 19:50] VITALS: RESP 18; TEMP 98.1; BMI 34.4
[2024-11-05] MEDS: ACETAMINOPHEN 1000 MG/100 ML BAG IVPB ONE ×2 (20:25→21:05)
[2024-11-05] MEDS ORDERED: ACETAMINOPHEN INJECTION 100 ML ONE (20:41)
[2024-11-05] MEDS: SODIUM CHLORIDE 0.9% 500 ML INFUS.BAG IV ONE (21:05)
[2024-11-05 21:22] LABS: PH,URINE 5.5 (5.0-8.0); URINE APPEARANCE CLEAR; URINE BILIRUBIN NEGATIVE (NEGATIVE); URINE COLOR YELLOW; URINE GLUCOSE (UA) NEGATIVE (NEGATIVE); URINE KETONE NEGATIVE (NEGATIVE); URINE LEUK ESTERASE NEGATIVE (NEGATIVE); URINE NITRITE NEGATIVE (NEGATIVE); URINE PROTEIN NEGATIVE (NEGATIVE); URINE UROBILINOGEN 0.2 mg/dL (0.2-1.0)
[2024-11-05 21:26] LABS: HEMATOCRIT 44.1 % (35.4-49); HEMOGLOBIN 14.2 GM/dL (11.7-16.9); MCH 27.9 pg (25.7-33.7); MCHC 32.3 g/dl (32.0-35.9); MEAN CELL VOLUME 86.5 fl (80-96); MEAN PLT VOLUME 8.1 fl (7.5-11.1); PLATELET COUNT 438 10^3/uL (134-434); RDW 13.6 % (11.9-15.9)
[2024-11-05] MEDS ORDERED: KETOROLAC TROMETHAMINE 15 MG/ML VIAL ONE (21:29)
[2024-11-05 21:33] LABS: POTASSIUM 4.3 mmol/L (3.5-5.1)
[2024-11-05 21:35] LABS: CALCIUM 9.7 mg/dL (8.5-10.1)
[2024-11-05 21:36] LABS: ALBUMIN 4.4 g/dl (3.4-5.0); BLOOD UREA NITROGEN 12.9 mg/dL (7-18)
[2024-11-05 21:39] LABS: CREATININE 1.2 mg/dL (0.55-1.3)
[2024-11-05 21:40] LABS: BILIRUBIN,TOTAL 0.5 mg/dL (0.2-1)
[2024-11-05] MEDS: KETOROLAC TROMETHAMINE 15 MG/ML VIAL IVPUSH ONE (21:41)
[2024-11-05 21:55] LABS: ANISOCYTOSIS 1+; MACROCYTOSIS 0; OVALOCYTE 1+
[2024-11-05] MEDS ORDERED: LIDOCAINE 4% PATCH TP ONE (23:35)
[2024-11-05] MEDS: LIDOCAINE 4% PATCH TP ONE (23:36)
[2024-11-05] MEDS: LIDOCAINE PATCH REMOVAL MC SCH (23:37)
[2024-11-06 01:22] VITALS: BP 144/62; PULSE 71
== END 2024-11-06 01:22 | disposition home or self-care (01) ==
LOC: JER 19:29
PROC: 3E033NZ Introduction of Analgesics, Hypnotics, Sedatives into Peripheral Vein, Percutaneous Approach (ICD-10-PCS; principal; 2024-11-05)
PROC: 3E0333Z Introduction of Anti-inflammatory into Peripheral Vein, Percutaneous Approach (ICD-10-PCS; 2024-11-05)
DX: M54.50 Low back pain, unspecified (principal); R10.9 Unspecified abdominal pain
CPT/HCPCS: 36415; 74176-TC; 80053; 81003; 85025; 87086; 99284-25; J0131